=== PATIENT | male | born 1965 | race Caucasian/White ===

== ENCOUNTER 2016-10-21 07:34 | Day surgery (SDC) | payer BC ==
[2016-10-21] MEDS ORDERED: ONDANSETRON HCL IV 4 MG/2 ML VIAL IVP ONE (14:00)
[2016-10-21] MEDS ORDERED: MIDAZOLAM HCL 2MG/2ML VIAL IV ONE (14:05)
[2016-10-21] MEDS ORDERED: PROPOFOL 10 MG/ML VIAL IV ONE (14:05)
[2016-10-21] MEDS ORDERED: LIDOCAINE 2% MDV (20MG/ML) 20ML VIAL IV ONE (14:05)
--- NOTE | 2016-10-24 14:21 | Operative Note ---
DATE OF SURGERY: 10/21/2016 SURGEON: Ever Perkins MD OPERATION: COLONOSCOPY. INDICATIONS: This is a 51-year-old male with average risk for colorectal cancer who presented for screening colonoscopy. POSTOPERATIVE DIAGNOSES: 1. Left-sided colonic diverticulosis. 2. A 3 mm sessile rectal polyp that was removed by cold biopsy forceps. 3. An adjacent 8 mm sessile polyp that was removed by snare cautery. 4. A 3 mm sigmoid colon polyp that was removed by cold biopsy forceps. 5. An 8 mm cecal polyp that was removed by cold snare with an adjacent 3 mm sessile polyp that was removed by cold biopsy forceps. ANESTHESIA: Sedation is per Anesthesia. Pulse oximetry was monitored throughout the procedure to maintain O2 saturation of 90% or greater. Supplemental oxygen was administered via nasal cannula. Cardiac and vital signs were monitored throughout the duration of the procedure, and they were stable. The procedure of colonoscopy and risks and benefits of the procedure, including the risk of bleeding and perforation, among others, were explained to the patient who voiced understanding and desired to have the procedure done. Physical examination was performed, and the patient was found stable for sedation. PROCEDURE: The patient was placed in the left lateral position. Sedation was initiated. A digital rectal exam was performed and showed some mild external hemorrhoids with no palpable rectal masses. An Olympus PCF-180AL colonoscope was then inserted into the rectum under direct visualization. It was advanced to the cecum without difficulty. The ileocecal valve and appendiceal orifice were identified and photographed. The colonic mucosa was carefully examined upon introduction of the colonoscope. There were scattered diverticula noted in the sigmoid and descending colon. In the rectum was a 3 mm sessile polyp that was noted and removed by cold biopsy forceps. In the sigmoid colon, was a 3 mm sessile polyp that was noted and was removed by cold biopsy forceps. There were scattered diverticula noted in the sigmoid and descending colon. In the cecum were 2 polyps. One was about 8 mm and was removed by cold snare and there was an adjacent 3 mm sessile polyp that was also removed by cold biopsy forceps. The colonoscope was then withdrawn while carefully examining the colonic mucosal surfaces. The rest of the cecum, ascending colon, transverse colon, and descending colon as well as sigmoid colon mucosa appeared normal. In the rectum was an 8 mm sessile polyp that was noted and was removed by snare cautery. There were no other lesions were noted. In the rectum, retroflexion was performed and grade 1 internal hemorrhoids were noted. The colonoscope was then withdrawn and the procedure was terminated. The patient tolerated the procedure well without any immediate complications. He remained with stable vital signs and was transferred to the recovery room. RECOMMENDATIONS: 1. He should be on a low-residue diet for 2 weeks and thereafter should be on a high-fiber diet. 2. He is to avoid any aspirin and aspirin-containing medications for 2 weeks. 3. He is to have a repeat colonoscopy for surveillance in 3-5 years depending on the histology of the polyps. Thank you for allowing me to participate in the care of your patient. Ever Perkins MD CC: Dr. Eric RAM
== END 2016-10-21 09:39 | disposition home or self-care (01) ==
LOC: HOP 07:34
PROVIDERS: ATTEND Internal Medicine Gastroenterology
DX: Z12.11 Encounter for screening for malignant neoplasm of colon (principal); D12.8 Benign neoplasm of rectum; K63.5 Polyp of colon; D12.0 Benign neoplasm of cecum
CPT/HCPCS: 45380; 45385; 00810; J2405

== ENCOUNTER 2017-11-01 12:26 | Emergency (ER) | payer BC ==
--- NOTE | 2017-11-01 13:01 | Emergency Department Record ---
History of Present Illness - General Chief Complaint: Fall Injury Stated Complaint: FALL Time Seen by Provider: 11/01/17 12:35 Source: Patient Mode of Arrival: Ambulatory - History of Present Illness Initial Comments: fall at home 2 days ago and he was confused and talking unusual and his neck is painful and he had a previous neck fusion. Today not acting unusual and he has a headache and neck pain. MD Complaint: Fall Onset/Timin -: Days(s) Fall From: Standing When Fall Occurred: # Days [employer] Fall Witnessed: No Place Fall Occurred: Home Loss of Consciousness: None Prolonged Down Time?: No Symptoms Prior to Fall: None Location: Head Severity: Moderate Severity scale (1-10): 8 Quality: Aching Context: Tripped/slipped Associated Symptoms: Headache - Kris Coma Scale Eye Response: (4) Open spontaneously Motor Response: (6) Obeys commands Verbal Response: (5) Oriented [place] Total: 15 - Related Data Previous Rx's Medication Instructions Recorded Naproxen [Naprosyn] 500 mg PO Q12H #20 tab. 11/01/17 Allergies Allergy/AdvReac Type Severity Reaction Status Date / Time No Known Drug Allergies Allergy Verified 11/01/17 12:33 Travel Screening - Travel/Exposure Within Last 30 Days Have you traveled within the last 30 days?: No - Travel/Exposure Within Last Year Have you traveled outside the [place] in the last year?: No - Additonal Travel Details Have you been exposed to anyone with a communicable illness?: No - Travel Symptoms Symptom Screening: None Review of Systems Reviewed: No additional complaints except as noted below Constitutional: Reports: As per HPI. Denies: Chills, Fever, Malaise, Night sweats, Weakness, Weight change Eyes: Reports: As per HPI. Denies: Eye discharge, Eye pain, Photophobia, Vision change ENT: Reports: As per HPI. Denies: Congestion, Dental pain, Ear pain, Epistaxis , Hearing loss, Throat pain Respiratory: Reports: As per HPI. Denies: Cough, Dyspnea, Hemoptysis, Stridor, Wheezes Cardiovascular: Reports: As per HPI. Denies: Arrhythmia, Chest pain, Dyspnea on exertion, Edema, Murmurs, Orthopnea, Palpitations, Paroxysmal nocturnal dyspnea, Rheumatic Fever, Syncope Endocrine: Reports: As per HPI. Denies: Fatigue, Heat or cold intolerance, Polydipsia, Polyuria Gastrointestinal: Reports: As per HPI. Denies: Abdominal pain, Constipation, Diarrhea, Hematemesis, Hematochezia, Melena, Nausea, Vomiting Genitourinary: Reports: As per HPI. Denies: Dysuria, Frequency, Hematuria, Incontinence, Retention, Testicular pain, Testicular mass, Urgency Musculoskeletal: Reports: As per HPI. Denies: Arthralgia, Back pain, Gout, Joint swelling, Myalgia, Neck pain Skin: Reports: As per HPI. Denies: Bruising, Change in color, Change in hair/ nails, Lesions, Pruritus, Rash Neurological: Reports: As per HPI, Headache. Denies: Abnormal gait, Confusion, Numbness, Paresthesias, Seizure, Tingling, Tremors, Vertigo, Weakness Psychiatric: Reports: As per HPI. Denies: Anxiety, Auditory hallucinations, Depression, Homicidal thoughts, Suicidal thoughts, Visual hallucinations Hematological/Lymphatic: Reports: As per HPI. Denies: Anemia, Blood Clots, Easy bleeding, Easy bruising, Swollen glands Past Medical History - SOCIAL HISTORY Smoking Status: Current every day smoker Alcohol Use: Occasional Drug Use: Rare Drug Use Detail:: Marijuana - RESPIRATORY Hx Respiratory Disorders: Yes Hx Sleep Apnea: Yes Hx of CPAP: Yes (occasionally) - CARDIOVASCULAR Hx Cardio Disorders: No Comment:: limited activity due to neck/back - NEURO Hx Neuro Disorders: Yes Hx Headaches: Yes Hx Neuropathy: Yes (arms) Hx Weakness: Yes (arms) - GI Hx GI Disorders: Yes Hx Abdominal Pain: Yes (occasionally) Hx Reflux: Yes (no meds) Hx Hiatal Hernia: Yes Hx Ulcer: Yes (no meds) - Hx Genitourinary Disorders: Yes Hx Kidney Stones: Yes Hx Prostate Problems: Yes (elevated PSA had biopsy which was negative) - ENDOCRINE Hx Endocrine Disorders: No - MUSCULOSKELETAL Hx Musculoskeletal Disorders: Yes Hx Arthritis: Yes Hx Back Injury: Yes (cervical fusion) Comment:: neck problems - PSYCH Hx Psych Problems: No - HEMATOLOGY/ONCOLOGY Hx Hematology/Oncology Disorders: Yes Hx Cancer: Yes (BCC right shoulder) Hx Chemotherapy: No Hx Radiation Therapy: No Family Medical History Any Significant Family History?: Yes Hx Heart Disease: Father, Mother, Grandparents Physical Exam - General General Appearance: Alert, Oriented x3, Cooperative, No acute distress - Head Head exam: Normal inspection - Eye Eye exam: Normal appearance, PERRL Pupils: Normal accommodation - ENT ENT exam: Normal exam, Mucous membranes moist, Normal external ear exam, Normal orophraynx, TM's normal bilaterally Ear exam: Normal external inspection. negative: External canal tenderness Nasal Exam: Normal inspection. negative: Discharge, Sinus tenderness Mouth exam: Normal external inspection, Tongue normal Teeth exam: Normal inspection. negative: Dental caries Throat exam: Normal inspection. negative: Tonsillar erythema, Tonsillar exudate - Neck Neck exam: Normal inspection, Full ROM, Tenderness - Respiratory Respiratory exam: Normal lung sounds bilaterally. negative: Respiratory distress - Cardiovascular Cardiovascular Exam: Regular rate, Normal rhythm, Normal heart sounds - GI/Abdominal GI/Abdominal exam: Soft, Normal bowel sounds. negative: Tenderness - Rectal Rectal exam: Deferred - exam: Deferred - Extremities Extremities exam: Normal inspection, Full ROM, Normal capillary refill. negative: Tenderness - Back Back exam: Reports: Normal inspection, Full ROM. Denies: Muscle spasm, Rash noted, Tenderness - Neurological Neurological exam: Alert, Normal gait, Oriented X3, Reflexes normal - Psychiatric Psychiatric exam: Normal affect, Normal mood - Skin Skin exam: Dry, Intact, Normal color, Warm Course Vital Signs 11/01/17 12:34 Temperature 97.5 F L Pulse Rate 101 H Respiratory 18 Rate Blood Pressure 130/96 Pulse Ox 94 L Medical Decision Making - Data Complexity MDM Data: X-Ray Ordered and/or Reviewed (CT of head no acute bleed seen) Disposition Clinical Impression: Neck pain Headache Qualifiers: Headache type: unspecified Headache chronicity pattern: acute headache Intractability: not intractable Qualified Code(s): R51 - Headache Headache due to trauma Qualifiers: Headache chronicity pattern: acute headache Intractability: not intractable Qualified Code(s): G44.319 - Acute post-traumatic headache, not intractable Concussion Qualifiers: Encounter type: initial encounter Loss of consciousness presence/duration: without LOC Qualified Code(s): S06.0X0A - Concussion without loss of consciousness, initial encounter Cervical strain, acute Qualifiers: Encounter type: initial encounter Qualified Code(s): S16.1XXA - Strain of muscle, fascia and tendon at neck level, initial encounter Disposition: Home, Self-Care Condition: (1) Good Instructions: Cervical Strain (ED), Concussion (ED) Additional Instructions: follow up with in 6 days Prescriptions: Naproxen [Naprosyn] 500 mg PO Q12H #20 tab.dr Forms: Patient Portal Access Time of Disposition: 13:16 Quality - Quality Measures Quality Measures: N/A - Blood Pressure Screening Does Patient Have Any of the Following: No Blood Pressure Classification: Hypertensive Reading Systolic Measurement: 130 Diastolic Measurement: 96 Screening for High Blood Pressure: < First Hypertensive BP, F/U Documented > [ [id number]] First Hypertensive Follow-up Interventions: Referral to alternative/primary care provider.
--- NOTE | 2017-11-02 08:20 | CT SCAN REPORT ---
EXAM: HEAD CT WITHOUT CONTRAST HISTORY: PATIENT FELL TWO DAYS AGO. TECHNIQUE: Axial CT scan of the head was performed without IV contrast. Comparison: None. Encounter: Initial. FINDINGS: No definite acute intracranial hemorrhage identified. No focal mass effect or midline shift apparent. No definite acute infarct or intracranial mass lesion is seen. The dural venous sinuses diffusely appear relatively hyperdense which because of the diffuse nature is presumably normal for the patient perhaps related to a degree of dehydration currently. Because of this hyperdensity, however, the possibility of dural venous sinus thrombosis cannot be adequately evaluated and if this was of clinical suspicion, MRI and MRV would be suggested for further evaluation. There is moderate membrane thickening in the right maxillary antra, less so on the left. No depressed calvarial fracture evident. IMPRESSION: 1. NO ACUTE INTRACRANIAL HEMORRHAGE OR FOCAL MASS EFFECT EVIDENT. 2. SOME MEMBRANE THICKENING IN THE MAXILLARY ANTRA RIGHT GREATER THAN LEFT. 3. THE DURAL VENOUS SINUSES DIFFUSELY APPEAR RELATIVELY HYPERDENSE DESCRIBED ABOVE. JOB NUMBER: [id number] [facility]TD[facility]
--- NOTE | 2017-11-02 08:27 | CT SCAN REPORT ---
EXAM: CT OF THE CERVICAL SPINE WITHOUT CONTRAST HISTORY: PATIENT FELL TWO DAYS AGO WITH NECK PAIN. PRIOR NECK FUSION. TECHNIQUE: Axial CT scan of the entire cervical spine was performed without IV contrast. Comparison: No prior cervical spine CT. Comparison is made with the plain film cervical spine series dated 10/28/13. Encounter: Initial. FINDINGS: Moderate membrane thickening right maxillary antrum and a mild amount in the left maxillary antrum. Mild deviation of the nasal septum to the right. There is some bullous disease in the lung apices suggesting emphysema. There is an anterior cervical fusion at the C6-C7 level with an internal plate and screw fixation device in place as well as an interspace stabilizer at this level. There is narrowing of the C5-C6 interspace with associated hypertrophic spurring. The fusion is new compared to prior plain film studies whereas the degenerative change at the C5-C6 level is similar to before. Degenerative change at the odontoid-anterior arch of C1 articulation as well. There is a prominent spur along the anterior aspect of the spinal canal at the posterior aspect of the fused C6-C7 interspace on the right. No definite fracture or prevertebral soft tissue swelling is seen in the cervical spine. IMPRESSION: 1. NO DEFINITE FRACTURE OR PREVERTEBRAL SOFT TISSUE SWELLING SEEN IN THE CERVICAL SPINE. 2. ANTERIOR CERVICAL FUSION AT THE C6-C7 LEVEL. PROMINENT SPUR ARISING FROM THE POSTERIOR ASPECT OF THE C6-C7 INTERSPACE ON THE RIGHT. 3. DEGENERATIVE CHANGES AT THE C5-C6 INTERSPACE AND AT THE ODONTOID-ANTERIOR ARCH OF C1 ARTICULATION WELL. JOB NUMBER: [id number] [facility]
== END 2017-11-01 14:28 | disposition home or self-care (01) ==
LOC: ER 12:26
DX: S06.0X0A Concussion without loss of consciousness, initial encounter (principal); S16.1XXA Strain of muscle, fascia and tendon at neck level, initial encounter; G44.319 Acute post-traumatic headache, not intractable; W01.10XA Fall on same level from slipping, tripping and stumbling with subsequent striking against unspecified object, initial encounter; Y92.009 Unspecified place in unspecified non-institutional (private) residence as the place of occurrence of the external cause; Z98.1 Arthrodesis status
CPT/HCPCS: 70450; 72125; 99283; 99284